=== PATIENT | male | born 1940 | race Caucasian/White ===

== ENCOUNTER 2020-11-02 11:19 | Outpatient (CLI) | payer MEDICARE, MEDICAID | END 2020-11-02 23:59 | disposition home or self-care (01) | LOC: RAD 11:19 | PROVIDERS: ATTEND Specialist | DX: M16.11 Unilateral primary osteoarthritis, right hip (principal); M25.851 Other specified joint disorders, right hip ==

== ENCOUNTER → 2020-11-29 | Outpatient (CLI) | payer MEDICARE, MEDICAID | END | disposition home or self-care (01) | LOC: RAD 12:10 | PROVIDERS: ATTEND Family Medicine | DX: I67.82 Cerebral ischemia (principal); M16.0 Bilateral primary osteoarthritis of hip; G31.89 Other specified degenerative diseases of nervous system; I63.81 Other cerebral infarction due to occlusion or stenosis of small artery; R93.89 Abnormal findings on diagnostic imaging of other specified body structures; G93.89 Other specified disorders of brain; J43.2 Centrilobular emphysema; R91.8 Other nonspecific abnormal finding of lung field; J98.11 Atelectasis; J18.9 Pneumonia, unspecified organism | CPT/HCPCS: 70551; 71250 ==